=== PATIENT | female | born 1945 | race Two or more races ===

== ENCOUNTER → 2018-09-01 | Outpatient (CLI) | payer OTHER | END | disposition home or self-care (01) | LOC: HKI 15:49 | DX: M25.561 Pain in right knee (principal); M25.562 Pain in left knee; I10 Essential (primary) hypertension | CPT/HCPCS: 73564; 73564-RT ==

== ENCOUNTER → 2018-09-21 | Outpatient (CLI) | payer OTHER | END | disposition home or self-care (01) | LOC: HKI 08:31 | DX: M17.11 Unilateral primary osteoarthritis, right knee (principal) | CPT/HCPCS: 20610 ==

== ENCOUNTER 2019-03-06 09:03 | Day surgery (SDC) | payer BC, OTHER, MEDICARE ==
[2019-03-06] MEDS ORDERED: PROPOFOL 40 ML (10:10)
== END 2019-03-06 15:41 | disposition home or self-care (01) ==
LOC: GIL 09:03
DX: K44.9 Diaphragmatic hernia without obstruction or gangrene (principal); K21.0 Gastro-esophageal reflux disease with esophagitis; K64.8 Other hemorrhoids; K57.30 Diverticulosis of large intestine without perforation or abscess without bleeding; D50.9 Iron deficiency anemia, unspecified; I10 Essential (primary) hypertension
CPT/HCPCS: 43239; 88305; 88312